=== PATIENT | female | born 1970 | race African-American/Black ===

== ENCOUNTER 2021-09-02 06:15 | Day surgery (SDC) | payer MEDICAID ==
[~2021-09-02] VITALS: Ht 165.1 cm; Wt 89.4 kg
[~2021-09-02 06:15] MED LIST: CHOL500014 PO; IBUP800T27 PO; LOSA50TA30 PO
[2021-09-02] MEDS ORDERED: PHENYLEPHRINE HCL 10 MG/ML VL IV ONE (06:16)
[2021-09-02] MEDS ORDERED: CLINDAMYCIN 900MG IV 50 ML IV ONE (06:57)
[2021-09-02] MEDS ORDERED: BUPIVACAINE 0.25% INJ 50ML VIAL ONE (06:59)
[2021-09-02] MEDS ORDERED: LIDOCAINE 1%HCL (LOCAL ANESTH) 10 ML MDV ONE (06:59)
[2021-09-02] MEDS ORDERED: SUCCINYLCHOLINE CHLORIDE 20 MG/ML 10ML VIAL IV ONE (07:11)
[2021-09-02] MEDS ORDERED: MEPERIDINE HCL (50 MG/ML) 1 ML VIAL ONE (07:18)
[2021-09-02] MEDS ORDERED: fentaNYL CITRATE 100 MCG/2 ML VL ONE (07:18)
[2021-09-02] MEDS ORDERED: MIDAZOLAM HCL 2MG/2ML 2ml VIAL (1mg/ml) ONE (07:18)
[2021-09-02] MEDS ORDERED: BUPIVACAINE HCL 50 ML ONE (07:21)
[2021-09-02] MEDS ORDERED: PROPOFOL 10 MG/ML 20 ML IV ONE (07:42)
[2021-09-02] MEDS ORDERED: DexAMETHasone SOD PHOS 10MG/1ML VIAL INJ ONE (07:42)
[2021-09-02] MEDS ORDERED: MORPHINE SULFATE 4 MG/ML SYR/VIAL IV PRN (08:00)
[2021-09-02] MEDS ORDERED: ONDANSETRON HCL 4 MG/2 ML VIAL IV PRN (08:00)
[2021-09-02] MEDS ORDERED: ePHEDrine SULFATE 50 MG/ML AMP IV PRN (08:00)
[2021-09-02] MEDS ORDERED: METOCLOPRAMIDE HCL 5MG/ml INJ 2ml VIAL IV PRN (08:00)
[2021-09-02] MEDS ORDERED: LABETALOL HCL 5 MG/ML 4ML SYRINGE IV PRN (08:00)
[2021-09-02] MEDS ORDERED: MIDAZOLAM HCL 2MG/2ML 2ml VIAL (1mg/ml) IV PRN (08:00)
[2021-09-02] MEDS ORDERED: HYDR1TAB97 PO (09:29)
[2021-09-02] MEDS: HYDROmorphone HCL 2 MG/ML VL/or syr IV PRN ×4 (09:38→10:10)
[2021-09-02 10:41] VITALS: BP 131/86
== END 2021-09-02 10:56 | disposition home or self-care (01) ==
LOC: SUR 06:15
PROVIDERS: ATTEND Orthopaedic Surgery Sports Medicine
DX: S82.61XA Displaced fracture of lateral malleolus of right fibula, initial encounter for closed fracture (principal); K21.9 Gastro-esophageal reflux disease without esophagitis; I10 Essential (primary) hypertension; Z90.710 Acquired absence of both cervix and uterus; Z88.0 Allergy status to penicillin; Z20.822 Contact with and (suspected) exposure to COVID-19; X58.XXXA Exposure to other specified factors, initial encounter; Y93.89 Activity, other specified; Y92.89 Other specified places as the place of occurrence of the external cause; Y99.8 Other external cause status
CPT/HCPCS: 27792; 73600; C1713; J0330; J1100; J1170; J2175; J2250; J2370; J2704; J3010; J3490; U0003; 76000; J2001

== ENCOUNTER 2022-05-07 08:19 | Emergency (ER) | payer MEDICAID ==
[~2022-05-07] VITALS: Ht 165.1 cm; Wt 89.7 kg
[~2022-05-07 08:19] MED LIST changes: +HYDR1TAB97 PO
[2022-05-07 08:26] VITALS: BP 136/89
[2022-05-07 08:58] LABS: Basophils # (auto) 0.1 10 ^3/uL (0-0.2); Basophils % (auto) 1.2 % (0.0-2.0); Eosinophils # (auto) 0.2 10 ^3/uL (0-0.8); Eosinophils % (auto) 2.6 % (0.0-7.0); Hematocrit 38.5 % (36.0-46.0); Hemoglobin 13.2 g/dL (12.2-16.2); Lymphocytes # (auto) 2.5 10 ^3/uL (0.4-5.4); Lymphocytes % (auto) 37.7 % (10.0-50.0); Mean Corpuscular Hemoglobin 28.6 pg (28.0-32.0); Mean Corpuscular Hgb Conc. 34.2 g/dL (32.0-36.0); Mean Corpuscular Volume 83.6 fL (80.0-100.0); Monocytes # (auto) 0.4 10 ^3/uL (0-1.3); Monocytes % (auto) 5.8 % (0.0-12.0); Neutrophils # (auto) 3.5 10 ^3/uL (1.6-8.6); Neutrophils % (auto) 52.7 % (37.0-80.0); Nucleated Red Blood Cells % 0.3 %; Red Blood Cells 4.61 10^6/uL (4.0-5.20); Red Cell Distribution Width 14.2 % (11.8-14.3); White Blood Cell 6.6 10^3/uL (4.4-10.8)
[2022-05-07 09:14] LABS: Albumin 4.1 g/dL (3.4-5.0); Calcium 9.2 mg/dL (8.5-10.1); Potassium 3.9 mmol/L (3.5-5.1)
[2022-05-07 09:18] LABS: BUN/Creatinine Ratio 22.2; Bilirubin, Total 0.4 mg/dL (0.2-1.0); Total Protein 7.6 g/dL (6.4-8.2)
== END 2022-05-07 10:17 | disposition home or self-care (01) ==
LOC: ER 08:19
DX: R07.89 Other chest pain (principal); I10 Essential (primary) hypertension; Z79.1 Long term (current) use of non-steroidal anti-inflammatories (NSAID); Z79.899 Other long term (current) drug therapy; Z88.0 Allergy status to penicillin
CPT/HCPCS: 36415; 71045; 80053; 84484; 85025; 85379; 93005